=== PATIENT | female | born 1980 | race Caucasian/White ===

== ENCOUNTER 2018-03-22 07:13 | Emergency (ER) | payer BC ==
[2018-03-22 07:31] VITALS: BP 119/82
--- NOTE | 2018-03-22 07:57 | UC ---
Complaint Female HPI - HPI Summary HPI Summary: She has a hx of kidney stone that has been followed by [facility] urology. For the past several days she has had urinary urgency and hesitancy. She says it feels like a UTI. NO fever or vomiting. There is some lower right flank pain. - History Of Current Complaint Chief Complaint: UCGU Stated Complaint: URINARY Time Seen by Provider: 03/22/18 07:23 Hx Obtained From: Patient Onset/Duration: Gradual Onset, Lasting Days Timing: Intermittent Severity Initially: Mild Severity Currently: Moderate Pain Intensity: 3 Character: Dull Aggravating Factor(s): Urination Alleviating Factor(s): Nothing Associated Signs And Symptoms: Positive: Back Pain. Negative: Fever, Vaginal Bleeding/Discharge, Vaginal Discharge, Nausea, Vomiting(# Of Episodes =), Genital Swelling, Genital Blisters - Allergies/Home Medications Allergies/Adverse Reactions: Allergies Allergy/AdvReac Type Severity Reaction Status Date / Time ketorolac [From Toradol] Allergy See Comment Verified 03/22/18 07:33 meperidine [From Demerol] Allergy See Comment Verified 03/22/18 07:33 PMH/Surg Hx/FS Hx/Imm Hx Previously Healthy: No - goiter, kidney stones. - Surgical History Surgical History: Yes Surgery Procedure, Year, and Place: hysterectomy, c-sections x 2 - Family History Known Family History: Positive: Other - no related uti hx in the family. - Social History Lives: With Family Alcohol Use: Occasionally Substance Use Type: None Smoking Status (MU): Never Smoked Tobacco Review of Systems Genitourinary: Frequency, Urgency, Other - right lower flank pain. All Other Systems Reviewed And Are Negative: Yes Physical Exam Triage Information Reviewed: Yes Appearance: Well-Appearing, No Pain Distress, Well-Nourished Vital Signs: Initial Vital Signs Temp 98.2 F 03/22/18 07:24 Pulse 69 03/22/18 07:24 Resp 14 03/22/18 07:24 BP 119/82 03/22/18 07:24 Pulse Ox 100 03/22/18 07:24 Vital Signs Reviewed: Yes Eye Exam: Normal Eyes: Positive: Conjunctiva Clear. Negative: Conjunctiva Inflamed ENT: Positive: Pharynx normal, Pharyngeal erythema. Negative: Nasal congestion , Nasal drainage Neck: Positive: Supple, Nontender, No Lymphadenopathy Respiratory: Positive: Lungs clear, Normal breath sounds, No respiratory distress, No accessory muscle use. Negative: Respiratory distress, Decreased breath sounds, Accessory muscle use, Crackles, Rhonchi, Stridor, Wheezing Cardiovascular: Positive: No Murmur, Pulses Normal, Brisk Capillary Refill Abdomen Description: Positive: No Organomegaly, Soft, CVA Tenderness (R) - right lower flank percussion tenderness in the are above the iliac crest.. Negative: Distended, Guarding, Peritoneal Signs, Pulsatile Mass, Splenomegaly Musculoskeletal: Positive: Strength Intact, ROM Intact, No Edema Neurological: Positive: Alert, Muscle Tone Normal. Negative: Fatigued Psychological: Positive: Age Appropriate Behavior Skin: Negative: rashes Complaint Female Dx - Course Course Of Treatment: Health e connections reviewed and "glass broken" due to the possible emergency nature of having infection on the same side as prior kidney stone. She was not sure where her kidney stone was. Ultrasound showed that it was on the left. Also, there is no CVAT simply right lower back pain whcih may represent an ascending UTI. No systemic signs or symptoms of infection. She agrees to go to an ED immediately for any worrisome changes and these possible changes were reviewed in detail with her. LIkely this is uti versus another stone that has dropped on the right. She has mild pain and is eating and drinking fine and does not have any signs of right kidney infection. - Differential Dx/Diagnosis Differential Diagnosis/HQI/PQRI: Appendicitis, Bartholin Cyst, Cervicitis, Ectopic, Endometriosis, Ovarian Cyst, Ovarian Torsion, Pelvic Inflammatory Disease, , Renal Colic, Retained Foreign Body, Sexually Transmitted Disease, Ureteral Stone, Urinary Tract Infection Provider Diagnoses: UTI. right lower flank pain. Discharge - Sign-Out/Discharge Documenting (check all that apply): Patient Departure - Discharge Plan Condition: Good Disposition: HOME Prescriptions: Sulfamethox/Trimethoprim DS* [Bactrim DS 800/160 TAB*] 1 tab PO BID #14 tab Patient Education Materials: Flank Pain (ED) Referrals: Helen Rose MD [Primary Care Provider] - Additional Instructions: Go to an ED if you have any new or worsening symptoms like fever, vomiting, worsening pain. - Billing Disposition and Condition Condition: GOOD Disposition: Home
== END 2018-03-22 07:52 | disposition home or self-care (01) ==
LOC: UCCORT 07:13
DX: N39.0 Urinary tract infection, site not specified (principal); B95.2 Enterococcus as the cause of diseases classified elsewhere; Z87.442 Personal history of urinary calculi; Z88.6 Allergy status to analgesic agent
CPT/HCPCS: 81003; 87086; 99202; G0463